=== PATIENT | female | born 1965 | race Caucasian/White ===

== ENCOUNTER → 2017-02-07 | Day surgery (SDC) | payer OTHER ==
--- NOTE | 2017-02-08 13:38 | PATH ---
Cytology Non-Gynecological Report Patient Name: ASIA CHOUDHARY [facility]. Rec. #: [id number] /Age/Gender: 1965 (Age: 51) / F Account: [id number] Location: RADIOLOGY Taken: 02/07/2017 Received: 02/07/2017 Reported: 02/08/2017 Physicians: Calli Amaral M.D. Specimen(s) Received LEFT THYROID FNA Clinical History Left 0.67 x 0.46 x 0.53 cm Final Diagnosis THYROID, LEFT, FINE NEEDLE ASPIRATION: SATISFACTORY FOR EVALUATION BETHESDA CATEGORY II: BENIGN (NO MALIGNANT CELLS IDENTIFIED) CYTOLOGIC FINDINGS ARE CONSISTENT WITH A BENIGN FOLLICULAR NODULE (COLLOID NODULE) ABUNDANT COLLOID, SCANT BENIGN FOLLICULAR CELLS, AND BLOOD PRESENT. Comment: Recommend correlation with clinical findings and follow up as clinically indicated. Electronically Signed Lee Regalado M.D. Gross Description Received are eight direct smears, four of which are air-dried and Diff-Quik stained, and four of which are alcohol fixed and Pap stained. Also received is 20 ml of bloody formalin from which one cellblock is prepared.
== END | disposition home or self-care (01) ==
LOC: JRADIR 07:49
PROVIDERS: ATTEND Internal Medicine Endocrinology, Diabetes & Metabolism
PROC: 0G9G3ZX Drainage of Left Thyroid Gland Lobe, Percutaneous Approach, Diagnostic (ICD-10-PCS; principal; 2017-02-07)
PROC: BG44ZZZ Ultrasonography of Thyroid Gland (ICD-10-PCS; 2017-02-07)
DX: E04.1 Nontoxic single thyroid nodule (principal)
CPT/HCPCS: 10022; 76942; 88173; 88305-TC

== ENCOUNTER → 2017-02-14 | Day surgery (SDC) | payer OTHER ==
--- NOTE | 2017-02-15 14:05 | PATH ---
Cytology Non-Gynecological Report Patient Name: ASIA CHOUDHARY [facility]. Rec. #: [id number] /Age/Gender: 1965 (Age: 51) / F Account: [id number] Location: RADIOLOGY Taken: 02/14/2017 Received: 02/14/2017 Reported: 02/15/2017 Physicians: Calli Amaral M.D. Specimen(s) Received RIGHT THYROID FNA Clinical History Right thyroid nodule, 1.56 x 1.11 x 1.39 cm Final Diagnosis THYROID GLAND, RIGHT LOBE, US GUIDED FINE NEEDLE ASPIRATION BIOPSY: SATISFACTORY FOR EVALUATION. NO MALIGNANT CELLS IDENTIFIED. CONSISTENT WITH NODULAR HYPERPLASIA (BENIGN FOLLICULAR NODULE, BETHESDA CATEGORY II, BENIGN), SEE COMMENT. Comment: The smears and the cell block show clusters of bland appearing follicular epithelial cells arranged in mixed macro- and microfollicles and flat sheets. Colloid is present. Electronically Signed James Membreno M.D. Gross Description Received are three air dried smears, three smears in 95% alcohol, and 1 cc of bloody fluid in formalin. Three diff-quik stained slides, three Pap stained slides and one cell block are made.
== END | disposition home or self-care (01) ==
LOC: JRADIR 08:36
PROVIDERS: ATTEND Internal Medicine Endocrinology, Diabetes & Metabolism
PROC: 0G9H3ZX Drainage of Right Thyroid Gland Lobe, Percutaneous Approach, Diagnostic (ICD-10-PCS; principal; 2017-02-14)
PROC: BG44ZZZ Ultrasonography of Thyroid Gland (ICD-10-PCS; 2017-02-14)
DX: E04.1 Nontoxic single thyroid nodule (principal)
CPT/HCPCS: 76942; 88173; 88305-TC

== ENCOUNTER 2021-03-26 10:53 | Emergency (ER) | payer OTHER ==
[2021-03-26 11:16] VITALS: BP 121/82; PULSE 93; TEMP 98; BMI 34.7
== END 2021-03-26 13:07 | disposition home or self-care (01) ==
LOC: JERFT 10:53
DX: S42.401A Unspecified fracture of lower end of right humerus, initial encounter for closed fracture (principal)
CPT/HCPCS: 73070-TC-RT-FY; 73140-TC-RT-FY; 99284-25

== ENCOUNTER 2021-06-25 09:56 | Day surgery (SDC) | payer OTHER ==
[2021-06-15 13:24] VITALS: BMI 35.9
[2021-06-25] MEDS ORDERED: ROPIVACAINE HCL 0.5% 30ML VIAL ONE (10:35)
[2021-06-25] MEDS ORDERED: ALBUTEROL SO4 HFA INHALER IH ONE (11:46)
[2021-06-25] MEDS ORDERED: LIDOCAINE HCL/PF 2% SDV 5ML VIAL ONE (11:46)
[2021-06-25] MEDS ORDERED: PROPOFOL 20 ML ONE (11:47)
[2021-06-25] MEDS ORDERED: MIDAZOLAM HCL 2 MG/2 ML SINGLE DOSE VIAL ONE (11:47)
[2021-06-25] MEDS ORDERED: ROCURONIUM BROMIDE 50 MG/5 ML SYRINGE ONE (11:47)
[2021-06-25] MEDS ORDERED: DEXMEDETOMIDINE HCL 200 MCG/2 ML IVPB ONE (12:34)
[2021-06-25] MEDS ORDERED: ACETAMINOPHEN INJECTION 100 ML IVPB ONE (12:34)
[2021-06-25] MEDS ORDERED: NEOSTIGMINE METHYLSULFATE 0.5 MG/ML - 10 ML MDV ONE (12:45)
[2021-06-25] MEDS ORDERED: KETOROLAC TROMETHAMINE 30 MG/1 ML VIAL ONE (12:45)
[2021-06-25] MEDS ORDERED: GLYCOPYRROLATE 0.2 MG/1 ML VIAL ONE (12:45)
[2021-06-25] MEDS ORDERED: TRANEXAMIC ACID 1000 MG/10 ML VIAL ONE (13:43)
[2021-06-25] MEDS ORDERED: oxyCODONE HCL 5 MG TABLET PO PRN ×2 (15:18→15:35)
[2021-06-25] MEDS ORDERED: ACETAMINOPHEN 325 MG TABLET (FP) PO PRN (15:35)
[2021-06-25 17:19] VITALS: BP 108/72; PULSE 80; TEMP 97.9
== END 2021-06-25 17:19 | disposition home or self-care (01) ==
LOC: FASU 09:56
PROVIDERS: ATTEND Orthopaedic Surgery
PROC: 0RBL4ZZ Excision of Right Elbow Joint, Percutaneous Endoscopic Approach (ICD-10-PCS; 2021-06-25)
PROC: 0RCL4ZZ Extirpation of Matter from Right Elbow Joint, Percutaneous Endoscopic Approach (ICD-10-PCS; 2021-06-25)
PROC: 0LN30ZZ Release Right Upper Arm Tendon, Open Approach (ICD-10-PCS; 2021-06-25)
PROC: 0RN Upper Joints, Release (ICD-10-PCS; 2021-06-25)
PROC: 01N40ZZ Release Ulnar Nerve, Open Approach (ICD-10-PCS; principal; 2021-06-25 12:34)
DX: G56.21 Lesion of ulnar nerve, right upper limb (principal); M94.221 Chondromalacia, right elbow; M24.021 Loose body in right elbow; M67.821 Other specified disorders of synovium, right elbow; M24.521 Contracture, right elbow
CPT/HCPCS: 82962; 94760; J0131

== ENCOUNTER 2021-08-26 05:03 | Day surgery (SDC) | payer OTHER ==
[2021-08-23 16:30] VITALS: BMI 37.5
[2021-08-26] MEDS ORDERED: ALBUTEROL SO4 HFA INHALER IH ONE (07:55)
[2021-08-26 09:38] VITALS: BP 137/90; PULSE 70; TEMP 97
== END 2021-08-26 10:14 | disposition home or self-care (01) ==
LOC: JASU-ENDO 05:03
PROVIDERS: ATTEND Internal Medicine Gastroenterology
PROC: 0DBK8ZX Excision of Ascending Colon, Via Natural or Artificial Opening Endoscopic, Diagnostic (ICD-10-PCS; 2021-08-26)
PROC: 0DBN8ZX Excision of Sigmoid Colon, Via Natural or Artificial Opening Endoscopic, Diagnostic (ICD-10-PCS; 2021-08-26)
PROC: 0DBP8ZX Excision of Rectum, Via Natural or Artificial Opening Endoscopic, Diagnostic (ICD-10-PCS; 2021-08-26)
PROC: 0DBM8ZX Excision of Descending Colon, Via Natural or Artificial Opening Endoscopic, Diagnostic (ICD-10-PCS; 2021-08-26)
PROC: 0DBN8ZX Excision of Sigmoid Colon, Via Natural or Artificial Opening Endoscopic, Diagnostic (ICD-10-PCS; principal; 2021-08-26 08:00)
DX: Z12.11 Encounter for screening for malignant neoplasm of colon (principal); D12.2 Benign neoplasm of ascending colon; D12.4 Benign neoplasm of descending colon; D12.5 Benign neoplasm of sigmoid colon; D12.7 Benign neoplasm of rectosigmoid junction; D12.8 Benign neoplasm of rectum; K57.30 Diverticulosis of large intestine without perforation or abscess without bleeding; K64.8 Other hemorrhoids; Z80.0 Family history of malignant neoplasm of digestive organs; I10 Essential (primary) hypertension; I11.9 Hypertensive heart disease without heart failure
CPT/HCPCS: 88305-TC

== ENCOUNTER 2022-02-19 15:54 | Emergency (ER) | payer OTHER ==
[2022-02-19 16:16] VITALS: BMI 39.3
[2022-02-19 18:10] LABS: BASO % 0.7 % (0-2.0); EOS % 3.4 % (0-4.5); HEMATOCRIT 35.6 % (32.4-45.2); HEMOGLOBIN 11.8 GM/dL (10.7-15.3); LYMPH % 18.4 % (8-40); MCH 28.9 pg (25.7-33.7); MCHC 33.1 g/dl (32.0-36.0); MEAN CELL VOLUME 87.3 fl (80-96); MEAN PLT VOLUME 7.2 fl (7.5-11.1); MONO % 5.6 % (3.8-10.2); NEUT % 71.9 % (42.8-82.8); PLATELET COUNT 475 10^3/uL (134-434); RBC 4.08 M/mm3 (3.60-5.2); RDW 13.3 % (11.6-15.6); WHITE BLOOD COUNT 14.1 K/mm3 (4.0-10.0)
[2022-02-19 18:35] LABS: BLOOD UREA NITROGEN 4.7 mg/dL (7-18); CALCIUM 8.6 mg/dL (8.5-10.1)
[2022-02-19 18:39] LABS: CREATININE 0.5 mg/dL (0.55-1.3)
[2022-02-19 18:40] LABS: BILIRUBIN,TOTAL 0.2 mg/dL (0.2-1); TOT PROT 5.9 g/dl (6.4-8.2)
[2022-02-19] MEDS ORDERED: ACETAMINOPHEN 1000 MG/100 ML BAG IVPB ONE (19:55)
[2022-02-19] MEDS ORDERED: ACETAMINOPHEN INJECTION 100 ML IVPB ONE (20:06)
[2022-02-20 00:38] VITALS: BP 142/95; PULSE 81; TEMP 98.1
== END 2022-02-20 00:42 | disposition short-term general hospital (02) ==
LOC: JER 15:54
PROC: 3E0333Z Introduction of Anti-inflammatory into Peripheral Vein, Percutaneous Approach (ICD-10-PCS; principal; 2022-02-19)
DX: T81.49XA Infection following a procedure, other surgical site, initial encounter (principal)
CPT/HCPCS: 36415; 80053; 85025; 87040; 96374; 99284-25; C9803-CS; U0003; U0005

== ENCOUNTER 2023-01-26 04:07 | Day surgery (SDC) | payer OTHER ==
[2023-01-25 11:23] VITALS: BMI 38.7
[2023-01-26] MEDS ORDERED: MIDAZOLAM HCL 2 MG/2 ML SINGLE DOSE VIAL ONE (09:18)
[2023-01-26 10:15] VITALS: TEMP 98
[2023-01-26 10:44] VITALS: BP 123/78; PULSE 73; RESP 19
== END 2023-01-26 11:10 | disposition home or self-care (01) ==
LOC: JASU-ENDO 04:07
PROVIDERS: ATTEND Internal Medicine Gastroenterology
PROC: 0DBN8ZX Excision of Sigmoid Colon, Via Natural or Artificial Opening Endoscopic, Diagnostic (ICD-10-PCS; 2023-01-26)
PROC: 0DBP8ZX Excision of Rectum, Via Natural or Artificial Opening Endoscopic, Diagnostic (ICD-10-PCS; 2023-01-26)
PROC: 0DBH8ZX Excision of Cecum, Via Natural or Artificial Opening Endoscopic, Diagnostic (ICD-10-PCS; principal; 2023-01-26 10:00)
DX: Z12.11 Encounter for screening for malignant neoplasm of colon (principal); D12.7 Benign neoplasm of rectosigmoid junction; D12.0 Benign neoplasm of cecum; D12.8 Benign neoplasm of rectum; K57.30 Diverticulosis of large intestine without perforation or abscess without bleeding; K64.8 Other hemorrhoids; Z86.010 Personal history of colon polyps
CPT/HCPCS: 82962; 88305-TC

== ENCOUNTER 2024-08-22 05:35 | Day surgery (SDC) | payer OTHER ==
[2024-08-20 12:24] VITALS: BMI 33.3
[2024-08-22 09:30] VITALS: RESP 18
[2024-08-22 09:53] VITALS: BP 117/67; PULSE 85; TEMP 98.1
== END 2024-08-22 10:18 | disposition home or self-care (01) ==
LOC: JASU-ENDO 05:35
PROVIDERS: ATTEND Internal Medicine Gastroenterology
PROC: 0DB88ZX Excision of Small Intestine, Via Natural or Artificial Opening Endoscopic, Diagnostic (ICD-10-PCS; 2024-08-22)
PROC: 0DB78ZX Excision of Stomach, Pylorus, Via Natural or Artificial Opening Endoscopic, Diagnostic (ICD-10-PCS; 2024-08-22)
PROC: 0DB68ZX Excision of Stomach, Via Natural or Artificial Opening Endoscopic, Diagnostic (ICD-10-PCS; 2024-08-22)
PROC: 0DB28ZX Excision of Middle Esophagus, Via Natural or Artificial Opening Endoscopic, Diagnostic (ICD-10-PCS; 2024-08-22)
PROC: 0DB38ZX Excision of Lower Esophagus, Via Natural or Artificial Opening Endoscopic, Diagnostic (ICD-10-PCS; principal; 2024-08-22 08:45)
DX: K21.00 Gastro-esophageal reflux disease with esophagitis, without bleeding (principal); K29.50 Unspecified chronic gastritis without bleeding; Z98.84 Bariatric surgery status
CPT/HCPCS: 82962; 88305-TC; 88342-TC

== ENCOUNTER 2024-10-24 10:04 | Observation (INO) | payer OTHER ==
[2024-10-24] MEDS ORDERED: RABIES IMMUNE GLOBULIN 300 UNITS/1 ML VIAL ONE (11:42)
[2024-10-24] MEDS ORDERED: RABIES VACCINE (PCEC)/PF 2.5 UNIT/VIAL IM ONE (11:42)
[2024-10-24] MEDS ORDERED: RABIES IMMUNE GLOBULIN/PF 300 UNIT/ML (5 ML) VIAL IM ONE (11:51)
[2024-10-24] MEDS: RABIES IMMUNE GLOBULIN 300 UNITS/1 ML VIAL IM ONE (11:56)
[2024-10-24] MEDS: RABIES VACCINE (PCEC)/PF 2.5 UNIT/VIAL IM ONE (11:58)
[2024-10-24 12:00] LABS: BASO % 0.5 % (0-2.0); EOS % 2.2 % (0-4.5); HEMATOCRIT 40.8 % (32.4-45.2); HEMOGLOBIN 13.3 GM/dL (10.7-15.3); LYMPH % 18.4 % (8-40); MCH 30.2 pg (25.7-33.7); MCHC 32.6 g/dl (32.0-36.0); MEAN CELL VOLUME 92.7 fl (80-96); MEAN PLT VOLUME 8.4 fl (7.5-11.1); NEUT % 70.9 % (42.8-82.8); PLATELET COUNT 278 10^3/uL (134-434); RDW 14.2 % (11.6-15.6); WHITE BLOOD COUNT 9.5 K/mm3 (4.0-10.0)
[2024-10-24 12:08] LABS: INR 1.04 (0.83-1.09); PROTHROMBIN TIME (PATIENT) 11.7 SEC (9.7-13.0)
[2024-10-24 12:11] LABS: ACTIVATED PTT 33.1 SECONDS (25.2-36.5)
[2024-10-24] MEDS ORDERED: PIPERACILLIN/TAZOB 4.5 GM 4.5 GM/100 ML BAG IVPB ONE (12:16)
[2024-10-24 12:17] LABS: POTASSIUM 3.6 mmol/L (3.5-5.1)
[2024-10-24] MEDS ORDERED: VANCOMYCIN 1 GM PREMIX (F) 1 GM/200 ML BAG ONE (12:17)
[2024-10-24] MEDS ORDERED: PIPERACILLIN/TAZOB 3.375 GM 3.375 GM/50 ML BAG IVPB ONE (12:17)
[2024-10-24] MEDS: PIPERACILLIN/TAZOB 4.5 GM 3.375 GM in DEXTROSE 5%-WATER 100 ML IVPB ONE (12:20)
[2024-10-24] MEDS: VANCOMYCIN 1,000 MG in DEXTROSE 5%-WATER - 250 ML IVPB ONE (12:20)
[2024-10-24 12:21] LABS: ALBUMIN 3.8 g/dl (3.4-5.0)
[2024-10-24 12:24] LABS: CREATININE 0.7 mg/dL (0.55-1.3)
[2024-10-24 12:26] LABS: BILIRUBIN,TOTAL 0.3 mg/dL (0.2-1)
[2024-10-24 12:27] LABS: TOT PROT 6.6 g/dl (6.4-8.2)
[2024-10-24 12:35] VITALS: BMI 33.5
[2024-10-24 12:38] LABS: ERYTHROCYTE SEDIMENTATION RATE 12 mm/hr (0-30)
[2024-10-24] MEDS: ACETAMINOPHEN 1000 MG/100 ML BAG IVPB ONE (12:48)
[2024-10-24] MEDS ORDERED: ACETAMINOPHEN INJECTION 100 ML ONE (12:49)
[2024-10-24 13:17] LABS: HIV INTERPRETATION NEGATIVE (NEGATIVE)
[2024-10-24] MEDS: PIPERACILLIN/TAZOB 3.375 GM 3.375 GM in DEXTROSE 5%-WATER - 50 ML IVPB SCH ×2 (18:46→19:53)
[2024-10-24] MEDS: ATORVASTATIN CA 80 MG TABLET (FP) PO SCH (21:36)
[2024-10-24] MEDS: QUEtiapine FUMARATE 100 MG TABLET (FP) PO SCH (21:36)
[2024-10-24] MEDS: clonazePAM 0.5 MG TABLET PO SCH (21:36)
[2024-10-24] MEDS: INSULIN ASPART SLIDING SCALE (NOVOLOG) 1 VIAL SQ SCH (21:40)
[2024-10-24] MEDS ORDERED: CLOMIPRAMINE HCL PO SCH (22:00)
[2024-10-24] MEDS: BUDESONIDE/FORMETEROL FUMARATE 160/4.5 mcg INHALER IH SCH (23:38)
[2024-10-24] MEDS: MELATONIN 5 MG TABLETS PO SCH (23:38)
[2024-10-24] MEDS: ACETAMINOPHEN 325 MG TABLET (FP) PO ONE (23:39)
[2024-10-25] MEDS ORDERED: PIPERACILLIN/TAZOB 3.375 GM 50 ML IVPB SCH
[2024-10-25] MEDS: PIPERACILLIN/TAZOB 4.5 GM 4.5 GM/100 ML BAG IVPB SCH (01:38)
[2024-10-25] MEDS: amLODIPine BESYLATE 5 MG TABLET (FP) PO SCH (09:14)
[2024-10-25] MEDS: ENOXAPARIN NA (PORCINE) 40 MG/0.4 ML DISP.SYRIN SQ SCH (09:14)
[2024-10-25] MEDS: TIOTROPIUM BROMIDE 2.5 MCG (SPIRIVA) RESPIMAT INHALER IH SCH (09:16)
[2024-10-25 09:25] LABS: BASO % 0.5 % (0-2.0); HEMATOCRIT 42.9 % (32.4-45.2); HEMOGLOBIN 13.7 GM/dL (10.7-15.3); LYMPH % 27.7 % (8-40); MCH 29.9 pg (25.7-33.7); MEAN CELL VOLUME 93.3 fl (80-96); MEAN PLT VOLUME 8.6 fl (7.5-11.1); MONO % 6.9 % (3.8-10.2); NEUT % 61.9 % (42.8-82.8); PLATELET COUNT 294 10^3/uL (134-434); RBC 4.59 M/mm3 (3.60-5.2); RDW 13.6 % (11.6-15.6); WHITE BLOOD COUNT 6.1 K/mm3 (4.0-10.0)
[2024-10-25 09:54] LABS: POTASSIUM 4.3 mmol/L (3.5-5.1)
[2024-10-25 09:57] LABS: ALBUMIN 3.7 g/dl (3.4-5.0); BLOOD UREA NITROGEN 9.3 mg/dL (7-18); CALCIUM 9.4 mg/dL (8.5-10.1)
[2024-10-25 10:00] LABS: CREATININE 0.6 mg/dL (0.55-1.3); MAGNESIUM 1.9 mg/dL (1.8-2.4); PHOSPHOROUS 4.1 mg/dL (2.5-4.9)
[2024-10-25] MEDS ORDERED: CLOMIPRAMINE HCL PO SCH (10:00)
[2024-10-25 10:02] LABS: BILIRUBIN,TOTAL 0.4 mg/dL (0.2-1); TOT PROT 7.1 g/dl (6.4-8.2)
[2024-10-25] MEDS: AMPICILLIN NA/SULBACTAM NA 3 GM in SODIUM CHLORIDE 100 ML IVPB SCH (10:12)
[2024-10-25] MEDS: ACETAMINOPHEN 325 MG TABLET (FP) PO PRN (13:20)
[2024-10-25 14:21] VITALS: BP 136/87; PULSE 75; RESP 18; TEMP 98.4
[2024-10-25] MEDS: NAPROXEN 250 MG TABLET PO SCH (15:26)
== END 2024-10-25 18:38 | disposition home or self-care (01) ==
LOC: JER 10:04 → INTOOBSV 14:41 → JERBED 14:41 → J6S 17:08
PROVIDERS: ADMIT Internal Medicine; ATTEND Internal Medicine
PROC: 3E03329 Introduction of Other Anti-infective into Peripheral Vein, Percutaneous Approach (ICD-10-PCS; principal; 2024-10-24)
PROC: 3E033NZ Introduction of Analgesics, Hypnotics, Sedatives into Peripheral Vein, Percutaneous Approach (ICD-10-PCS; 2024-10-24)
PROC: 3E023GC Introduction of Other Therapeutic Substance into Muscle, Percutaneous Approach (ICD-10-PCS; 2024-10-24)
PROC: 3E0234Z Introduction of Serum, Toxoid and Vaccine into Muscle, Percutaneous Approach (ICD-10-PCS; 2024-10-24)
DX: L03.114 Cellulitis of left upper limb (principal); W55.03XA Scratched by cat, initial encounter; Y93.89 Activity, other specified; Y92.009 Unspecified place in unspecified non-institutional (private) residence as the place of occurrence of the external cause; E11.9 Type 2 diabetes mellitus without complications; J45.909 Unspecified asthma, uncomplicated; I10 Essential (primary) hypertension; E78.5 Hyperlipidemia, unspecified; Z98.84 Bariatric surgery status; Z90.79 Acquired absence of other genital organ(s); Z96.653 Presence of artificial knee joint, bilateral; F17.210 Nicotine dependence, cigarettes, uncomplicated; Z88.2 Allergy status to sulfonamides; Z23 Encounter for immunization
CPT/HCPCS: 36415; 73090-TC-LT-FY; 73110-TC-LT-FY; 73130-TC-LT-FY; 73200-TC-RT; 80048; 80053; 82962; 83036; 83735; 84100; 85025; 85610; 85651; 85730; 86140; 86803; 86850; 86900; 86901; 87040; 87070; 87205; 87389; 90375; 90471; 90675; 96365; 96366; 96367; 96372; 96375; 99285-25; G0378; J0131

== ENCOUNTER 2024-10-27 10:13 | Emergency (ER) | payer OTHER ==
[2024-10-27 10:21] VITALS: BP 120/74; PULSE 97; RESP 18; TEMP 97.9; BMI 33.5
[2024-10-27] MEDS ORDERED: RABIES VACCINE (PCEC)/PF 2.5 UNIT/VIAL IM ONE (11:31)
[2024-10-27] MEDS ORDERED: DOXYCYCLINE HYCLATE 100 MG CAPSULE PO ONE (11:57)
[2024-10-27] MEDS: RABIES VACCINE (PCEC)/PF 2.5 UNIT/VIAL IM ONE (12:00)
[2024-10-27] MEDS: DOXYCYCLINE HYCLATE 100 MG CAPSULE PO ONE (12:01)
== END 2024-10-27 12:04 | disposition home or self-care (01) ==
LOC: JERFT 10:13 → JER 10:13 → JERFT 12:04
PROC: 3E0234Z Introduction of Serum, Toxoid and Vaccine into Muscle, Percutaneous Approach (ICD-10-PCS; principal; 2024-10-27)
DX: S50.812A Abrasion of left forearm, initial encounter (principal); L08.9 Local infection of the skin and subcutaneous tissue, unspecified; W55.03XA Scratched by cat, initial encounter
CPT/HCPCS: 90675; 99285-25